=== PATIENT | male | born 1940 | race Caucasian/White ===

== ENCOUNTER → 2024-05-27 07:14 | Outpatient (REF) | payer OTHER, SELFPAY | LOC: HWRCS 07:14 | PROVIDERS: ATTENDING PHYSICIAN Internal Medicine Cardiovascular Disease; FAMILY PHYSICIAN Family Medicine | DX: I35.0 Nonrheumatic aortic (valve) stenosis (principal) | CPT/HCPCS: 93306 ==

== ENCOUNTER → 2024-08-09 07:13 | Outpatient (REF) | payer OTHER, SELFPAY | LOC: RAD 07:13 | PROVIDERS: ATTENDING PHYSICIAN Internal Medicine Cardiovascular Disease; FAMILY PHYSICIAN Nurse Practitioner Adult Health | DX: I65.21 Occlusion and stenosis of right carotid artery (principal); I65.22 Occlusion and stenosis of left carotid artery; E78.00 Pure hypercholesterolemia, unspecified | CPT/HCPCS: 93880 ==

== ENCOUNTER → 2025-05-18 09:41 | Outpatient (REF) | payer OTHER, SELFPAY | LOC: HWRAD 09:41 | PROVIDERS: ATTENDING PHYSICIAN Internal Medicine Cardiovascular Disease; FAMILY PHYSICIAN Family Medicine | DX: Z95.0 Presence of cardiac pacemaker (principal); R06.02 Shortness of breath; I35.0 Nonrheumatic aortic (valve) stenosis | CPT/HCPCS: 71046 ==

== ENCOUNTER → 2025-06-01 08:09 | Outpatient (REF) | payer OTHER, SELFPAY | LOC: HWRCS 08:09 | PROVIDERS: ATTENDING PHYSICIAN Internal Medicine Cardiovascular Disease | DX: Z95.0 Presence of cardiac pacemaker (principal); R06.02 Shortness of breath; I35.0 Nonrheumatic aortic (valve) stenosis | CPT/HCPCS: 93306 ==

== ENCOUNTER 2025-06-28 09:06 | Day surgery (SDC) | payer OTHER, SELFPAY ==
[2025-06-28 10:29] LABS: Glucose - Point of Care 96 mg/dl (70-99)
--- NOTE | 2025-06-28 11:17 | ITS.CL.CARDI ---
Ramp Service Agent - Cardioversion
Cardioversion
Procedure Report:
Date of Procedure: 06/28/25.
Procedure: Cardioversion.
Indication: Symptomatic persistent atrial fibrillation.
Performing Physician: Giana Gil MD
Technique: The patient was brought to the holding area. Signed informed consent was obtained. A time out was called and performed. The patient was sedated by a member of the anesthesia service. Anticoagulation status was reviewed and was
appropriate. R-2 pads were placed anteriorly and posteriorly. A 200 J synchronized biphasic shock restored normal sinus rhythm without significant bradycardia. There were no complications.
Conclusion: Uncomplicated cardioversion from atrial fibrillation to sinus rhythm.
Recommendation: Routine post cardioversion care. Continue fci anticoagulation.
cc: Nissa
[2025-06-28 11:52] VITALS: BMI 27.1
== END 2025-06-28 11:30 | disposition home or self-care (01) ==
LOC: CATH 09:06
PROVIDERS: ATTENDING PHYSICIAN Internal Medicine Cardiovascular Disease; FAMILY PHYSICIAN Family Medicine; OTHER PHYSICIAN Internal Medicine Cardiovascular Disease
DX: I48.19 Other persistent atrial fibrillation (principal); Z95.0 Presence of cardiac pacemaker; I10 Essential (primary) hypertension; E11.9 Type 2 diabetes mellitus without complications; I35.0 Nonrheumatic aortic (valve) stenosis
CPT/HCPCS: 82962; 92960; 93005

== ENCOUNTER → 2025-07-31 07:27 | Outpatient (REF) | payer SELFPAY ==
[2025-07-31 11:16] LABS: Albumin 4.3 g/dl (3.5-5.0); Blood Urea Nitrogen 35 mg/dl (9-20); Calcium 9.2 mg/dl (8.4-10.2); Carbon Dioxide 27 mmol/L (22-30); Chloride 106 mmol/L (98-107); Glucose 97 mg/dl (70-99); Potassium 4.7 mmol/L (3.5-5.1); Sodium 137 mmol/L (135-145); eGFR 54.17
== END ==
LOC: HWLAB 07:27
PROVIDERS: ATTENDING PHYSICIAN Internal Medicine Cardiovascular Disease; FAMILY PHYSICIAN Family Medicine
DX: N17.9 Acute kidney failure, unspecified (principal)
CPT/HCPCS: 36415; 80069

== ENCOUNTER 2025-08-02 06:14 | Day surgery (SDC) | payer OTHER, SELFPAY ==
--- NOTE | 2025-08-01 12:58 | CONSULT.STRU ---
Consultation
-
Date/Time Consultation Requested: 08/02/2025
Date/Time Consultation Performed: 08/02/2025
Requesting Provider: Peña Bojorquez DO
Performing Provider: Marietta Ramos DNP, CRNP
Reason for Consultation: /TAVR
Patient History
Physicians
Family Physician: Peña Chacko MD
Outpatient Chartered Wealth Manager: Adalid Floyd MD
Primary Chartered Wealth Manager: Adalid Azar MD
History of Present Illness
Mr. Kumar is a very pleasant 84 yom that has a past medical history significant for aortic stenosis, Persistent afib, PPM, chronic KOSTA occlusion, moderate (L) carotid stenosis, HTN, DM, hypercholesterolemia, and RBBB. His echocardiogram from
06/01/2025 is notable for EF 45-50%, AV P/M 52/36, ARIANNE 0.8, mild AI, mild-moderate MR, mild TR, PAP 47. His cardiac catheterization from 08/02/2025 demonstrated Right dominant circulation with a congenitally absent left main coronary artery, luminal
irregularities in the left circulation, a 40% lesion in the mid/distal RCA by the crux and a 75% lesion in the mid vessel, status post successful PCI (Xience Skypoint 3.0 x 18 MANUELA, postdilated with a 3.5 NC balloon) with reduction in stenosis to 0%,
maintaining REHANA-3 flow. Mildly elevated filling pressures (PCWP = 17 mmHg at 98.2 kg). Large V wave (45 mmHg) on wedge pressure, suggestive of mitral valve regurgitation versus noncompliant left atrium. Echocardiogram shows mild to moderate MR.
Severe aortic valve stenosis by echocardiography.. From a symptomatology standpoint, patient describes SAL. Discussed the pathophysiology and treatment options of aortic stenosis including SAVR and TAVR, Explained the evaluation process comprising
of lab work, CT scan, CT surgical consult, dental clearance, and a heart team discussion. TAVR booklet, contact information, prescriptions, and appointments given to patient. Allowed for and answered questions at bedside.
Past Medical History
Past Medical History: Arrhythmias (AV block (ppm) ), Atrial Fib (persistent (Eliquis)), HTN, Hypercholesterolemia, NIDDM, Valvular Disease (aortic stenosis) and Other (carotid artery disease)
Past Surgical History
Past Surgical History: Other (Dual pacer, [employer], model WIDR01 with 5076 leads 11/01/2020)
Dental History
Dr. Danyell NOLAN-- Patient will make appt
Family History
Mother: at Age
Father: at Age
Social History
Drug: None
Allergies
Allergy/AdvReac Type Severity Reaction Status Date / Time
No Known Allergies Allergy Unverified 04/18/11 12:25
Home Medications
�Medication �Instructions �Recorded �Confirmed �Type
atorvastatin 40 mg tablet 40 mg PO DAILY Hyperlipidemia 10/31/20 06/28/25 History
cyanocobalamin (vitamin B-12) 1,000 mcg PO QMWF Supplement 10/31/20 06/28/25 History
1,000 mcg tablet
finasteride 5 mg tablet 5 mg PO DAILY Prostate 10/31/20 06/28/25 History
glipizide 5 mg tablet 5 mg PO BID Diabetes 10/31/20 06/28/25 History
latanoprost 0.005 % eye drops 1 drp BOTH EYES HS Antiglaucoma 10/31/20 10/31/20 History
pioglitazone 30 mg tablet 30 mg PO DAILY Diabetes 10/31/20 06/28/25 History
metformin 850 mg tablet 850 mg PO BID@0800,1700 Diabetes 11/02/20 06/28/25 Rx
##0
amiodarone 200 mg tablet 200 mg PO DAILY 06/28/25 06/28/25 History
apixaban 5 mg tablet (Eliquis) 5 mg PO BID 06/28/25 06/28/25 History
furosemide 20 mg tablet (Lasix) 20 mg PO DAILY 06/28/25 06/28/25 History
lisinopril 20 mg tablet 40 mg PO DAILY Blood pressure 10/15/25 10/15/25 History
STS%
STS %: 4.07
Review of Systems
-
History Source: Patient
General: Reports Fatigue
HEENT: Reports No Symptoms
Respiratory: Reports SAL
Cardiac: Reports No Symptoms
Abdomen/GI: Reports No Symptoms
: Reports No Symptoms
Musculoskeletal: Reports No Symptoms
Skin: Reports No Symptoms
Neurological: Reports No Symptoms
Vascular: Reports No Symptoms
Physical Exam
Labs
07/26/2025
HH: 12.2/27.8
Plt 256k
WBC 5.6
BUN/Creatinine: 53/1.71
GFR: 39
07/31/2025
BUN/Creatinien: 35/1.3
GFR 54
Diagnostic Studies
ECHOCARDIOGRAM 06/01/2025
SUMMARY
1. Left ventricular ejection fraction is mildly reduced with an ejection fraction of 45-50%.
2. Severe aortic stenosis. The peak aortic valve gradient is 52.1 mmHg. The mean aortic valve gradient is 36.0 mmHg. The calculated valve area by Continuity equation is 0.8 cm2.
3. Mild aortic regurgitation.
4. Mild/moderate mitral valve regurgitation.
5. Compared to 05/27/24: LVEF has declined from 50-55% to 45-50%. has progressed from moderate to severe.
CARDIAC CATHETERIZATION 08/02/2025
Procedure Type:�Isolated AVR
Perioperative Outcome Estimate %
Operative Mortality 4.07%
Morbidity & Mortality 27%
Stroke 1.92%
Renal Failure 7.23%
Reoperation 4.28%
Prolonged Ventilation 12.5%
Deep Sternal Wound Infection 0.04%
Long Hospital Stay (>14 days) 4.76%
Short Hospital Stay (<6 days)* 28.2%
Exam
General: Well Developed, Well Nourished, No Apparent Distress and Comfortable
HEENT: Normocephalic
Neck: Trachea Midline
Respiratory: Clear
Cardiac: Murmur (IV/ KARTHIK)
GI: Soft, Non Tender and Non Distended
Rectal: Deferred by Provider
Skin: Warm and Dry
Neuro: Awake, Alert, Oriented and AO x 3
Psych: Calm
Assessment / Plan
-
Aortic stenosis
Continue TAVR evaluation
Trend creatinine after contrast
TAVR CT scan (t/c staged w/ hydration)
CT surgical consult
Frailty testing and Kccq12 at consult
HOld Eliquis x 48 hours before TAVR
Continue plavix. Will add aspirin while Eliquis held
Dental clearance
Heart team discussion
Data Reviewed
-
EKG: Report Reviewed by me
Senior Sales Operations Analyst: Report Reviewed by me and Discussed with Physician
Labs: Labs Reviewed by me
Old Records: Reviewed
Total Time Spent with Patient (in minutes): 45
[2025-08-02] VITALS (12 sets, daily range): BP systolic 120–168; BP diastolic 47–72; BMI 27.8
[2025-08-02 06:58] LABS: Glucose - Point of Care 85 mg/dl (70-99)
[2025-08-02] MEDS: NSS 295 ML IV (07:20)
--- NOTE | 2025-08-02 09:22 | ITS.CL.ANGIO ---
Bottoming Room Inspector - Angioplasty
Angioplasty
Procedure Report:
CARDIAC CATHETERIZATION REPORT
Date of Procedure: 08/02/2025
Referring: THELMA Mcallister
Indication: Severe aortic valve stenosis, dyspnea on exertion with multiple CAD risk factors.
PROCEDURE:
1. Right heart catheterization.
2. Coronary angiography.
3. Distal aortography with runoff to the bilateral femoral arteries.
4. Successful PCI of the mid RCA.
A total of 37 minutes of procedural/moderate sedation was utilized. An independent electromedical equipment repairer was present to assist with and help manage the patient's level of consciousness and physiologic status.
ACCESS:
1. 6 Finnish right radial artery using a modified Seldinger technique.
2. 5 Finnish right antecubital vein using a previously placed IV.
CATHETERS:
1. 5 Finnish balloon wedge.
2. 5 Finnish JL 3.5.
3. 5 Finnish JR4.
4. 6 Finnish JR4 guiding catheter.
HEMODYNAMIC DATA
Weight (kg): 98.2
AO (s/d/x, mmHg): 135/53/83
LV (s/x, mmHg): Not obtained.
PCWP (a/v/x, mmHg): 20/45/17
PA (s/d/x, mmHg): 52/19/30
RV (s/x, mmHg): 52/10
RA (a/v/x, mmHg): 16//10
SVC SvO2 (%): 68.9
IVC SvO2 (%): Not obtained.
RA SvO2 (%): Not obtained.
RV SvO2 (%): Not obtained.
PA SvO2 (%): 68.0
SaO2 (%): 97.3
Hbg (g/dL): 10.8
GARCIA
CO (L/min): 6.74
CI (L/min/m2): 3.00
Thermodilution
CO (L/min): Not performed.
CI (L/min/m2): Not performed.
TPG (mmHg): 13
PVR (Weinstein Units): 1.93
SVR (dynes*seconds*cm^-5): 866
AVO2 Diff (Volume %): 4.30
Cardiac Power Output (mathew): 1.24 (MAP * CO)/451 (normal 0.5 - 0.7; 0.4 - 0.6 in the elderly)
Cardiac Power Index (mathew/m2): 0.55 (MAP * CI)/451
Anne-Marie: 3.3 (PAs-PAd)/RA
AV gradient (x, mmHg): Not obtained.
AV area (cm2): Not obtained.
MV gradient (x, mmHg): Not obtained.
MV area (cm2): Not obtained.
LEFT VENTRICULOGRAPHY: Not performed.
AORTOGRAPHY: Performed in the distal aorta tracking along the bilateral iliac arteries to the level of the common femoral. Normal size vessels with adequate vessel diameter and acceptable bifurcations below the femoral head. There is no evidence
of atherosclerotic disease. There is no significant tortuosity.
CORONARY ANGIOGRAPHY
Dominance: Right.
Left Main: Congenitally absent.
LAD: Large size vessel arising directly from the aorta, giving rise to 2 notable diagonals before wrapping around the apex. There are luminal irregularities with dense calcification throughout.
Ramus: Congenitally absent.
Circumflex: Normal size, nondominant vessel giving rise to 2 obtuse marginals. The first obtuse marginal subsequently bifurcates into 2 daughter branches with minor luminal irregularities. OM 2 is a fairly small vessel on the inferolateral
margin with minor luminal irregularities.
RCA: Normal size, dominant vessel with a large posterolateral arcade. There is dense external calcification. There is a 75% lesion in the mid vessel. There is a 40% lesion in the mid/distal RCA by the crux.
INTERVENTIONS
1. Successful PCI of the 75% mid RCA lesion (Xience Skypoint 3.0 x 18 MANUELA, postdilated with a 3.5 NC balloon) with reduction in stenosis to 0%, maintaining REHANA-3 flow.
Narrative:
The decision was made to proceed with percutaneous coronary intervention. The diagnostic catheter was removed over a wire and a 6Fr JR4 guiding catheter was advanced to the aortic root and seated in the RCA. Additional heparin was given and a Power
Turn Flex wire was advanced into the distal RCA. The 75% mid RCA lesion was predilated with a 2.0 x 12 semi-compliant balloon to 12 dori. The decision was made to predilate more aggressively. The semicompliant balloon was withdrawn and a 3.0 x 15
NC balloon was advanced. The lesion was dilated to 16 dori. The noncompliant balloon was removed and a Xience Skypoint 3.0 x 18 drug-eluting stent was advanced. The stent was deployed at 12 atmospheres. The stent balloon was removed. A 3.5 x 15
noncompliant balloon was advanced into the stent and the stent was postdilated to 15 atmospheres. Angiography was performed in orthogonal views, confirming good stent expansion and an excellent angiographic result. The coronary wire was withdrawn
and the guide was disengaged from the artery. The catheter was removed over a standard J-wire.
Closure Device: Vascular band for the right radial artery, manual pressure for the right antecubital vein.
Radiation dose (mGy): 768.40
DAP (cm2.Gy): 50.4953
Fluoroscopy time (minutes): 9.5
CONCLUSIONS:
1. Right dominant circulation with a congenitally absent left main coronary artery, luminal irregularities in the left circulation, a 40% lesion in the mid/distal RCA by the crux and a 75% lesion in the mid vessel, status post successful PCI
(Xience Skypoint 3.0 x 18 MANUELA, postdilated with a 3.5 NC balloon) with reduction in stenosis to 0%, maintaining REHANA-3 flow.
2. Mildly elevated filling pressures (PCWP = 17 mmHg at 98.2 kg).
3. Large V wave (45 mmHg) on wedge pressure, suggestive of mitral valve regurgitation versus noncompliant left atrium. Echocardiogram shows mild to moderate MR.
4. Severe aortic valve stenosis by echocardiography.
RECOMMENDATIONS:
1. Expectant management after cardiac catheterization via right radial/antecubital approach.
2. Limited weight bearing on the right for one week.
3. Antiplatelet therapy with clopidogrel and apixaban for at least 12 months, followed by apixaban monotherapy thereafter.
4. Aggressive secondary prevention with high-dose, high potency statin. Goal LDL <55.
5. OMT/GDMT as hemodynamics will tolerate.
6. Proceed with further TAVR evaluation including CTA chest and consultation with CT surgery.
7. Referral to cardiac rehab to start after AVR.
Copy to: Adalid Azar M.D., THELMA Mcallister, Peña Chacko M.D.
Peña Bojorquez DO, FACC, FACP
--- NOTE | 2025-08-02 11:14 | CM ---
Chart reviewed. Patient is independent of ADLS, lives with his in a 1 STH, 13 DEL, 0 DME. Plan is for the patient to return home. CM to follow
[2025-08-02 12:32] LABS: Glucose - Point of Care 78 mg/dl (70-99)
[2025-08-02] MEDS: NOVOLOG FLEXPEN-MODERATE RESISTANCE SC (12:37)
[2025-08-02 17:09] LABS: Glucose - Point of Care 167 mg/dl (70-99)
[2025-08-02] MEDS: NOVOLOG FLEXPEN-MODERATE RESISTANCE 1 UNITS SC (17:24)
[2025-08-02] MEDS: XALATAN OPHTHALMIC SOLUTION 1 DROP BOTH EYES (17:29)
[2025-08-02] MEDS: LIPITOR 40 MG PO (17:29)
--- NOTE | 2025-08-02 19:02 | PTCARENOTE ---
~4324-3927: Received patient from CCL. AOx4, NSR 60s, SBP 130s, RA satting 97%. Patient does not c/o pain at this time. R brachial site CDI, R radial TR band in place with no oozing or hematoma noted at this time. EKG obtained. Admission charting
completed and patient oriented to unit and call arellano system. All needs met at this time, call arellano within reach.
~0469-3237: pt OOB with minimal assist to void in bathroom.Attemp to remove air out of TR band, site oozed, air replaced. R brachial site soft, CDI. family at bedside. Patient OOB to chair and set up to order food tray. All needs met, call arellano
within reach.
~4876-1589: Air removed from TR band per protocol.
~4990-1484: Patient independent in room. VSS. TR band off around 1430, R radial site CDI and soft with no oozing or hematoma noted. All needs met at this time, call arellano within reach.
~0522-6415: No changes from previous assessment. VSS. All needs met, call arellano within reach. Handoff report given to nightshift RN.
[2025-08-02] MEDS: GLUCOTROL 5 MG PO (19:24)
[2025-08-02] MEDS: ELIQUIS 5 MG PO (19:24)
--- NOTE | 2025-08-02 19:40 | PTCARENOTE ---
Received pt @ change of shift. AAOx3, OOB in chair. VSS-- V-paced w/ 1st degree AV block and BBB on monitor. Right radial site CDI, no swelling, ecchymosis, or hematoma present @ this time. Right brachial site CDI, no swelling, ecchymosis or
hematoma present @ this time. Evening medications given-- see MAR. Discussed plan of care for evening and morning. Pt verbalizes understanding. Call arellano within reach.
[2025-08-02 22:12] LABS: Glucose - Point of Care 144 mg/dl (70-99)
[2025-08-02] MEDS: MELATONIN 5 MG PO (22:54)
[2025-08-03 04:02] VITALS: BP 125/52
[2025-08-03 05:07] LABS: Hematocrit 32.0 % (39.0-52.0); Hemoglobin 10.8 g/dL (13.0-18.0); Mean Corp Hgb Conc. 33.8 g/dL (33.0-37.0); Mean Corpuscular Volume 90.1 fL (80.0-94.0); Platelet Count 220 10^3/uL (130-400); Red Cell Dist. Width 15.2 % (11.5-14.5)
[2025-08-03 05:32] LABS: Blood Urea Nitrogen 21 mg/dl (9-20); Calcium 9.0 mg/dl (8.4-10.2); Carbon Dioxide 26 mmol/L (22-30); Chloride 107 mmol/L (98-107); Estimated Creatinine Clearance 64 ml/min; Glucose 60 mg/dl (70-99); HDL Cholesterol 73 mg/dl; LDL Cholesterol, Calculated 25 mg/dl; Potassium 4.3 mmol/L (3.5-5.1); Sodium 135 mmol/L (135-145); Very Low Density Lipoprotein 10 mg/dl (0-30); eGFR > 60.00
[2025-08-03 07:15] VITALS: BP 143/57
--- NOTE | 2025-08-03 07:19 | PTCARENOTE ---
Assumed care of the pt @ 0700. Pt is AAOx3 V-Paced on the monitor VSS Rt radial and rt brachial cathsites dressing c/d/i. POC discussed with pt. Call arellano within reach.
[2025-08-03 07:54] LABS: Glucose - Point of Care 62 mg/dl (70-99)
[2025-08-03 08:11] LABS: Glucose - Point of Care 85 mg/dl (70-99)
[2025-08-03] MEDS: NOVOLOG FLEXPEN-MODERATE RESISTANCE SC (08:13)
[2025-08-03] MEDS: GLUCOTROL PO (08:13)
[2025-08-03] MEDS: LASIX 20 MG PO (08:14)
[2025-08-03] MEDS: ZESTRIL 40 MG PO (08:14)
[2025-08-03] MEDS: ACTOS 30 MG PO (08:14)
[2025-08-03] MEDS: PACERONE 200 MG PO (08:15)
[2025-08-03] MEDS: ELIQUIS 5 MG PO (08:15)
[2025-08-03] MEDS: PLAVIX 75 MG PO (08:15)
[2025-08-03] MEDS: PROSCAR 5 MG PO (08:15)
--- NOTE | 2025-08-03 08:19 | W.PN.CD ---
Today's Communication / Plan
-
Clopidogrel and apixaban for one year, followed by apixaban monotherapy.
Outpatient TAVR workup.
Discharge.
Impression / Plan
-
Impression/Plan: 84 y/o male with BAY, persistent atrial fibrillation, high grade conduction disease s/p PPM, HTN, HLD and severe, symptomatic aortic valve stenosis admitted after elective pre-TAVR cath lead to PCI of mRCA lesion.
#CAD
-New diagnosis.
-Luminal irregularities throughout coronary tree with discrete, 75% lesion in the mRCA, s/p PCI (Xience Skypoint 3.0 x 18 MANUELA, post dilated with a 3.5 NC balloon), with reduction in stenosis to 0%.
-EKG stable.
-Anti-thrombotic therapy with clopidogrel and apixaban for one year, followed by apixaban monotherapy.
-Continue atorvastatin.
#Severe aortic valve stenosis
-Now symptomatic.
-Mildly elevated filling pressures on cath.
-TAVR planning.
#Atrial fibrillation
-Chronic, persistent. Recent DCCV 06/28/2025.
-Currently in Atrial flutter with V-pacing.
-Rate/rhythm control with amiodarone.
-CHADS2-Vasc = 5 (HTN, Age x2, DM, vascular disease).
-Therapeutic anticoagulation with apixaban.
#HTN
-Chronic, stable.
-Continue home lisinopril 40 mg daily.
#HLD
-Chronic, stable.
-Total cholesterol = 108, LDL = 25, HDL = 73, Triglycerides = 53.
#Dispo
-IVU status.
-Full code.
-Discharge planning.
Subjective/Interval History:
PCI of mRCA yesterday during pre-TAVR cath.
No acute events.
No subjective complaints.
DATA:
Cardiac Catheterization/PCI, 08/02/2025:
CONCLUSIONS:
1. Right dominant circulation with a congenitally absent left main coronary artery, luminal irregularities in the left circulation, a 40% lesion in the mid/distal RCA by the crux and a 75% lesion in the mid vessel, status post successful PCI
(Xience Skypoint 3.0 x 18 MANUELA, postdilated with a 3.5 NC balloon) with reduction in stenosis to 0%, maintaining REHANA-3 flow.
2. Mildly elevated filling pressures (PCWP = 17 mmHg at 98.2 kg).
3. Large V wave (45 mmHg) on wedge pressure, suggestive of mitral valve regurgitation versus noncompliant left atrium. Echocardiogram shows mild to moderate MR.
4. Severe aortic valve stenosis by echocardiography.
Physical Exam
Vital Signs/Labs
Vital Signs
Temp Pulse Resp BP Pulse Ox
36.8 C 64 16 143/57 100
08/03/25 07:15 08/03/25 07:15 08/03/25 07:15 08/03/25 07:15 08/03/25 07:16
08/01/25 08/02/25 08/03/25
11:59 11:59 11:59
Actual Weight 98.2 kg
08/03/25 04:24
08/03/25 04:24
Triglycerides 53 mg/dl (10-149) 08/03/25 04:24
LDL Cholesterol, Calc 25 mg/dl 08/03/25 04:24
VLDL Cholesterol, Calc 10 mg/dl (0-30) 08/03/25 04:24
HDL Cholesterol 73 mg/dl 08/03/25 04:24
Physical Exam
Constitutional: No acute distress and Comfortable
EENT: Anicteric and Moist mucous membranes
Cardiovascular: Rhythm & rate is regular, Pedal edema is absent, JVD pressure is normal and Systolic murmur present
Respiratory: Respiratory effort normal, Lungs clear to auscul., Wheeze Absent, Crackles Absent and Rhonchi Absent
GI: Soft, Distention absent, Flat, Non tender and Normal bowel sounds
Neuro/Psych: AO x 3
Other: Cath Site (Right radial/antecubital access site is C/D/I.)
Data Reviewed
-
Date of Service: August 03, 2025
Medical Decision Making: Reviewed Test Results, Independent Historian Assessment and Test Interpretation
EKG: Tracing Personally Visualized and interpreted and Report Reviewed by me
Echo: Tracing Personally Visualized and interpreted and Report Reviewed by me
Medical Tests (PFT, Pathology etc): Image Personally Visualized and interpreted, Report Reviewed by me and Discussed with Patient
Labs: Labs Reviewed by me
Old Records: Reviewed
[2025-08-03 09:32] LABS: Glycohemoglobin (HgbA1c) 7.1 % (4.0-5.9)
--- NOTE | 2025-08-03 09:58 | W.DS.TRANS ---
DC Summary - Internal Audit Manager
-
Discharge Instructions:
Discharge Diagnosis/Procedures Angioplasty and stent to Right Coronary artery
Diet Low Cholesterol,Diabetic, Carb Controlled
Driving Restrictions No driving for 24 hours
Blood Work PLEASE GET YOUR LAB WORK NEXT WEEK (08/08 OR
26). PLEASE FAX RESULTS TO [phone] [facility] HEART TEAM
Others Tests YOUR CT SCAN IS SCHEDULED FOR (08/17/2025 @ 9:30)
AT [facility]. NOTHING TO
EAT OR DRINK [address] SCAN. PLEASE
BRING A LIST OF MEDICATIONS. YOU MAY TAKE YOUR
MORNING MEDICATIONS PRIOR TO COMING IN.
YOU WILL NEED DENTAL CLEARANCE PRIOR TO YOUR
VALVE REPLACEMENT
Instructions:
Stand-Alone Forms: DC Instructions- Cath/EP Lab
Changes to Home Medications: Yes
Discharge Medications:
DC Medications w/original date entered in [employer]
atorvastatin 40 mg tablet 40 mg PO QPM Hyperlipidemia 10/31/20
cyanocobalamin (vitamin B-12) 1,000 mcg tablet 1,000 mcg PO QMWF Supplement 10/31/20
finasteride 5 mg tablet 5 mg PO DAILY Prostate 10/31/20
glipizide 5 mg tablet 5 mg PO BID Diabetes 10/31/20
latanoprost 0.005 % eye drops 1 drp BOTH EYES QPM Antiglaucoma 10/31/20
pioglitazone 30 mg tablet 30 mg PO DAILY Diabetes 10/31/20
metformin 850 mg tablet 850 mg PO BID@0800,1700 Diabetes ##0 11/02/20
Held on 08/03/25. Instructions: Resume on 08/05/25.
amiodarone 200 mg tablet 200 mg PO DAILY 06/28/25
apixaban 5 mg tablet (Eliquis) 5 mg PO BID 06/28/25
furosemide 20 mg tablet (Lasix) 20 mg PO DAILY 06/28/25
lisinopril 20 mg tablet 40 mg PO DAILY Blood pressure 06/28/25
clopidogrel 75 mg tablet 75 mg PO DAILY #90 tabs 08/02/25
Home Medication Changes
new to clopidogrel
Pending Results: No
[2025-08-03 10:18] VITALS: BP 131/51
[2025-08-03 10:18] LABS: ACT-LR - POC 339 Seconds (116-155)
[2025-08-03 10:19] VITALS: BP 131/51
--- NOTE | 2025-08-03 11:10 | PTCARENOTE ---
Pt was discharged to home accompanied by family. Discharge instructions given including stent wallet card. Discussed follow up care appointments and lab work. Pt declined wheelchair escort to lobby. director behavioral health and piv removed prior to leaving.
== END 2025-08-03 11:15 | disposition home or self-care (01) ==
LOC: CATH 06:14
PROVIDERS: Nurse Practitioner; ATTENDING PHYSICIAN Internal Medicine Cardiovascular Disease; FAMILY PHYSICIAN Family Medicine; OTHER PHYSICIAN Internal Medicine Cardiovascular Disease
DX: I25.10 Atherosclerotic heart disease of native coronary artery without angina pectoris (principal); E11.59 Type 2 diabetes mellitus with other circulatory complications; E78.00 Pure hypercholesterolemia, unspecified; I08.0 Rheumatic disorders of both mitral and aortic valves; I10 Essential (primary) hypertension; I45.9 Conduction disorder, unspecified; I48.19 Other persistent atrial fibrillation; I48.92 Unspecified atrial flutter; Z79.01 Long term (current) use of anticoagulants; Z79.84 Long term (current) use of oral hypoglycemic drugs; Z79.899 Other long term (current) drug therapy; Z95.5 Presence of coronary angioplasty implant and graft; Z79.02 Long term (current) use of antithrombotics/antiplatelets; Z95.0 Presence of cardiac pacemaker; I65.22 Occlusion and stenosis of left carotid artery; I45.10 Unspecified right bundle-branch block
CPT/HCPCS: 99152; 99153; G0278; 80048; 80061; 82962; 83036; 85027; 85347; 93005; 93456; C1725; C1769; C1874; C1894; C9600; Q9967

== ENCOUNTER → 2025-08-17 09:19 | Outpatient (REF) | payer OTHER, SELFPAY | LOC: RAD 09:19 | PROVIDERS: ATTENDING PHYSICIAN Nurse Practitioner Acute Care; FAMILY PHYSICIAN Physician Assistant | DX: I35.0 Nonrheumatic aortic (valve) stenosis (principal) | CPT/HCPCS: 75572; Q9967 ==